=== PATIENT | female | born 1960 | race Caucasian/White ===

== ENCOUNTER 2018-01-15 09:11 | Day surgery (SDC) | payer OTHER ==
[2018-01-14 12:48] VITALS: BMI 38.2
--- NOTE | 2018-01-15 09:34 | HP ---
History & Physical Update - History History: No Change (Consent signed and witnessed) - Physical Physical: No Change - Assessment Assessment: No Change - Plan Plan: No Change
--- NOTE | 2018-01-15 11:41 | OP ---
Operative Note - Note: Operative Date: 01/15/18 Pre-Operative Diagnosis: 57yo Postmenopausal woman with thick Endometrium Operation: Hysteroscopy/Myomectomy/Polypectomy/D&C Findings: 1. Submucosal fibroids 2. Endometrial and cervical polyps 3. Partial uterine septum 4. Malodorous urine Post-Operative Diagnosis: Same as Pre-op (fibroids, polyps and partial septum) Surgeon: Ani Borges Anesthesiologist/AIR PUMPER: Joel Estrada Anesthesia: MAC Specimens Removed: 1. Endometrial fibroids and polyps. 2. Endocervical polyps. 3. Urine culture Estimated Blood Loss (mls): 0 Drains & Tubes with Location: Fluid deficit - 200cc Drains, Volume Out (mls): 200 Fluid Volume Replaced (mls): 1,000 Operative Report Dictated: Yes
[2018-01-15] MEDS ORDERED: MIDAZOLAM HCL 2 MG/2 ML SINGLE DOSE VIAL ONE ×2 (13:29)
[2018-01-15] MEDS ORDERED: ONDANSETRON 4 MG/2 ML VIAL IVPUSH PRN (13:32)
[2018-01-15] MEDS ORDERED: IBUPROFEN 800 MG/8 ML IJ IVPB PRN (13:32)
[2018-01-15] MEDS ORDERED: oxyCODONE HCL 5 MG TABLET PO PRN (13:32)
[2018-01-15] MEDS ORDERED: IBUPROFEN 600 MG TABLET (FP) PO PRN (13:32)
[2018-01-15] MEDS ORDERED: LIDOCAINE HCL/PF 2% SDV 5ML VIAL ONE (13:45)
[2018-01-15] MEDS ORDERED: ELECTROLYTE-148 SOLN 1,000 ML IV SCH (13:45)
[2018-01-15] MEDS ORDERED: KETOROLAC TROMETHAMINE 30 MG/1 ML VIAL ONE (14:23)
[2018-01-15] MEDS ORDERED: LACTATED RINGERS SOLUTION 1,000 ML IV SCH (14:45)
[2018-01-15] MEDS ORDERED: PROMETHAZINE HCL 25 MG/1 ML VIAL IVPUSH PRN (14:45)
[2018-01-15 15:52] VITALS: TEMP 98.6
[2018-01-15 16:43] VITALS: BP 113/87; PULSE 67
--- NOTE | 2018-01-15 21:58 | OP ---
DATE OF OPERATION: 01/15/2018 SURGEON: Ani Borges MD PREOPERATIVE DIAGNOSIS: A 57-year-old postmenopausal woman with thick endometrium. OPERATION: Hysteroscopy, myomectomy, polypectomy, dilation and curettage. FINDINGS: Submucosal fibroids appearing initially as polyps. Endometrial and cervical polyps. Partial uterine septum. Malodorous urine. POSTOPERATIVE DIAGNOSIS: A 57-year-old postmenopausal woman with thick endometrium, submucosal fibroids, polyps, and partial uterine septum. ANESTHESIOLOGIST: Joel Estrada MD ANESTHESIA: MAC. SPECIMENS REMOVED: Endometrial fibroids and polyps, endocervical polyps, and urine culture sent. DESCRIPTION OF OPERATIVE PROCEDURE: After assuring informed consent, patient was brought to the operating room where she was placed in the dorsal lithotomy position. Perineum and vagina were prepped and draped in the sterile fashion. [place] hysteroscope was assembled, weight balanced, and primed. Cervix was visualized with a Webster speculum, articulated with a single-toothed tenaculum. Uterus was found to be retroverted. Cervix was dilated with DeLee dilators to accommodate 6-mm hysteroscope, which was introduced into the uterus without any difficulty. Bilateral osteo polyp-appearing structures were noted. The resectoscope was introduced and upon beginning of the resection, it was realized that bilateral polyp-appearing structures were fibroids, which were successfully resected without any difficulty. Low uterine segment polyps and cervical polyps were noted as well and were resected as well with the [place] hysteroscope. Subsequently, all instruments were removed from the uterus, cervix, and vagina. ESTIMATED BLOOD LOSS: Zero mL. FLUID DEFICIT: 200 mL. Patient received 1000 mL of IV fluids and drained 200 mL of urine. COUNTS: Sponge and instrument count was correct x2. CONDITION: Patient was brought stable to the recovery room. Jameel [id number]
--- NOTE | 2018-01-17 16:38 | PATH ---
Surgical Pathology Report Patient Name: CATARINO DILLON [facility]. Rec. #: [id number] /Age/Gender: 1960 (Age: 57) / F Account: [id number] Location: [facility] SUR[facility]ICAL Taken: 01/15/2018 Received: 01/16/2018 Reported: 01/17/2018 Physicians: Ani Borges M.D. Specimen(s) Received A: ENDOCERVICAL POLYPS B: FIBROID AND ENDOMETRIAL CURETTINGS Clinical History Endometrial thickening Final Diagnosis A. "ENDOCERVICAL POLYP", DILATION AND CURETTAGE: RARE SMOOTH MUSCLE FRAGMENT CONSISTENT WITH LEIOMYOMA AND POLYPOID BENIGN ENDOCERVICAL TISSUE. B. FIBROIDS AND ENDOMETRIAL CURETTINGS, DILATION AND CURETTAGE: FRAGMENTS OF SMOOTH MUSCLE CONSISTENT WITH LEIOMYOMA, ENDOMETRIAL AND ENDOCERVICAL POLYP. Electronically Signed Chela Rainey M.D. Gross Description A. Received in formalin labeled "endocervical polyps," is a 1.4 x 1.1 x 0.2 cm aggregate of blood-tinged mucus, possibly containing soft tissue fragments. The formalin is filtered and the specimen is entirely submitted in one cassette. B. Received in formalin labeled "fibroids and endometrial curettings," is a 3.5 x 2.5 x 0.3 cm aggregate of albright fragments of firm tissue, consistent with fibroids. The specimen is entirely submitted in 2 cassettes. DL/01/16/2018 saudi01/16/2018
== END 2018-01-15 16:47 | disposition home or self-care (01) ==
LOC: JASU-SURG 09:11
PROVIDERS: ATTEND Obstetrics & Gynecology
PROC: 0UB97ZX Excision of Uterus, Via Natural or Artificial Opening, Diagnostic (ICD-10-PCS; 2018-01-15)
PROC: 0UDB7ZX Extraction of Endometrium, Via Natural or Artificial Opening, Diagnostic (ICD-10-PCS; 2018-01-15)
PROC: 0UJD8ZZ Inspection of Uterus and Cervix, Via Natural or Artificial Opening Endoscopic (ICD-10-PCS; 2018-01-15)
PROC: 0UB98ZZ Excision of Uterus, Via Natural or Artificial Opening Endoscopic (ICD-10-PCS; principal; 2018-01-15 11:00)
PROC: 0UBC7ZX Excision of Cervix, Via Natural or Artificial Opening, Diagnostic (ICD-10-PCS; 2018-01-15 11:00)
DX: N85.00 Endometrial hyperplasia, unspecified (principal); D25.0 Submucous leiomyoma of uterus; N84.0 Polyp of corpus uteri; N84.1 Polyp of cervix uteri
CPT/HCPCS: 71046-TC-FY; 87086; 87186; 88305-TC; 94760